=== PATIENT | male | born 1955 | race Caucasian/White ===

== ENCOUNTER → 2016-07-29 | Outpatient (CLI) | payer BC | LOC: MW.CHIM 08:04 | PROVIDERS: ATTEND Internal Medicine | DX: E11.9 Type 2 diabetes mellitus without complications (principal); Z79.4 Long term (current) use of insulin | CPT/HCPCS: 36415; 83036 ==

== ENCOUNTER 2016-09-12 19:57 | Emergency (ER) | payer BC ==
--- NOTE | 2016-09-12 20:02 | EDM.PDOC ---
ED HPI GENERAL MEDICAL PROBLEM - General Chief Complaint: Genitourinary Problem Stated Complaint: POSSIBLE UTI Time Seen by Provider: 09/12/16 20:00 Source of Information: Reports: Patient History Limitations: Reports: No Limitations - History of Present Illness INITIAL COMMENTS - FREE TEXT/NARRATIVE: HISTORY AND PHYSICAL: History of present illness: [Patient complaining frequent urination] Review of systems: As per history of present illness and below otherwise all systems reviewed and negative. Past medical history: As per history of present illness and as reviewed below otherwise noncontributory. Surgical history: As per history of present illness and as reviewed below otherwise noncontributory. Social history: No reported history of drug or alcohol abuse. Family history: As per history of present illness and as reviewed below otherwise noncontributory. Physical exam: HEENT: Normocephalic, atraumatic, pupils normal and symmetrical, supple neck, no meningismus, normal color Lungs: Normal and symmetrical chest wall excursion bilateral with no tachypnea or increased work of breathing, grossly normal chest exam Heart: No tachycardia in triage Abdomen: Normal-appearing, nondistended, no visible mass or asymmetry Pelvis: Normal-appearing Genitourinary: Deferred Rectal exam: Deferred Extremities: Atraumatic, normal use and range of motion, no visible evidence of gross neurovascular compromise Neuro: Awake, alert, oriented. Normal and appropriate mental status. Cranial nerves grossly unremarkable. Motor function normal. Nonfocal neurologic exam. Diagnostics: [Urinalysis pending] Therapeutics: [] Impression: [Dysuria] Plan: [] Definitive disposition and diagnosis as appropriate pending reevaluation and review of above. - Related Data Allergies Allergy/AdvReac Type Severity Reaction Status Date / Time No Known Allergies Allergy Verified 09/12/16 20:00 Home Meds: Home Meds Aspirin [[place] Aspirin] 1 tab PO DAILY 08/29/15 [History] Enalapril [Vasotec] 1 tab PO ASDIRECTED 08/29/15 [History] Insulin Glarg,Human.Rec.Analog [Lantus Solostar] 20 unit SUBCUT BEDTIME [History] Metoprolol Succinate 1 tab PO DAILY 08/29/15 [History] Mycophenolate Mofetil 1,000 mg PO BID 08/29/15 [History] NIFEdipine [Nifedipine ER] 1 tab PO DAILY 08/29/15 [History] Tacrolimus 1 tab PO ASDIRECTED 08/29/15 [History] predniSONE [Prednisone] 1 tab PO DAILY 08/29/15 [History] Sulfamethoxazole/Trimethoprim [Bactrim 400-80 MG] 1 tab PO DAILY 02/13/16 [ History] Ciprofloxacin [Ciprofloxacin HCl] 500 mg PO BID #20 tablet 09/12/16 [Rx] Past Medical History Other HEENT History: wears glasses, has upper denture Cardiovascular History: Reports: Hypertension, PVD Respiratory History: Reports: None Gastrointestinal History: Reports: None, Other (See Below) Other Gastrointestinal History: occasional heartburn Genitourinary History: Reports: Acute Renal Failure, Dialysis, Renal Calculus Other Genitourinary History: hx renal failure, dialysis in the past, hx of pancreas and kidney transplant Musculoskeletal History: Reports: None Neurological History: Reports: None Psychiatric History: Reports: None Endocrine/Metabolic History: Reports: Diabetes, Type I, Diabetes, Type II, Other (See Below) Hematologic History: Reports: None Immunologic History: Reports: Immunosuppression, Solid Organ Transplant Other Immunologic History: takes anti-rejection drugs Oncologic (Cancer) History: Reports: None Dermatologic History: Reports: None - Past Surgical History HEENT Surgical History: Reports: Cataract Surgery, Laser Surgery Male Surgical History: Reports: Kidney Stone Extraction Social & Family History - Tobacco Use Smoking Status *Q: Current Every Day Smoker Years of Tobacco use: 15 Packs/Tins Daily: 0.5 - Caffeine Use Caffeine Use: Reports: Coffee Caffeine Use Comment: 1 cup/ day - Recreational Drug Use Recreational Drug Use: No Drug Use in Last 12 Months: No ED ROS GENERAL - Review of Systems Review Of Systems: See Below (History of present illness) ED EXAM, RENAL/ - Physical Exam Exam: See Below (History of present illness) Course - Vital Signs Last Recorded V/S: Last Vital Signs Temp 36.5 C 09/12/16 20:01 Pulse 89 09/12/16 20:01 Resp 17 09/12/16 20:01 BP 146/81 H 09/12/16 20:01 Pulse Ox 97 09/12/16 20:01 - Orders/Labs/Meds Orders: Active Orders 24 hr Category Date Time Status CULTURE URINE [RM] Stat Lab 09/12/16 21:45 Ordered Labs: Laboratory Tests 09/12/16 09/12/16 Range/Units 20:01 20:25 Sodium 136 (136-146) mmol/L Potassium 4.9 (3.5-5.1) mmol/L Chloride 109 (98-110) mmol/L Carbon Dioxide 19 L (21-31) mmol/L BUN 19 (6.0-23.0) mg/dL Creatinine 1.1 (0.6-1.5) mg/dL Est Cr Clr Drug Dosing 29.41 mL/min Estimated GFR (MDRD) > 60.0 ml/min Glucose 167 H (60-110) mg/dL Calcium 9.2 (8.8-10.8) mg/dL Urine Color YELLOW Urine Appearance HAZY Urine pH 7.5 (5.0-8.0) Ur Specific [place] 1.010 (1.001-1.035) Urine Protein TRACE (NEGATIVE) mg/dL Urine Glucose (UA) 100 H (NEGATIVE) mg/dL Urine Ketones NEGATIVE (NEGATIVE) mg/dL Urine Occult Blood MODERATE (NEGATIVE) Urine Nitrite NEGATIVE (NEGATIVE) Urine Bilirubin NEGATIVE (NEGATIVE) Urine Urobilinogen 0.2 (<2.0) EU/dL Ur Leukocyte Esterase LARGE (NEGATIVE) Urine RBC 6-10 (0-2/HPF) Urine WBC 5-10 (0-5/HPF) Ur Epithelial Cells RARE (NONE-FEW) Ur Renal Epithelial Cell RARE Urine Bacteria FEW (NEGATIVE) Meds: Medications Discontinued Medications Generic Name Dose Route Start Last Admin Trade Name [place] PRN Reason Stop Dose Admin Ciprofloxacin 500 mg 09/12/16 21:45 Ciprofloxacin Hcl PO 09/12/16 21:46 ONETIME ONE Departure - Departure Time of Disposition: 21:47 Disposition: Home, Self-Care 01 Clinical Impression: Urinary tract infection - Discharge Information Prescriptions: Ciprofloxacin [Ciprofloxacin HCl] 500 mg PO BID #20 tablet Instructions: Urinary Tract Infection, Adult, [id number] Referrals: Tk Painting DO [Primary Care Provider] - Forms: ED Department Discharge Additional Instructions: Your symptoms and urinalysis suggest that you have an early urinary tract infection. Finish Keflex as prescribed and follow-up with your tomorrow. Your creatinine today was 1.1. - My Orders Last 24 Hours: My Active Orders 09/12/16 21:45 CULTURE URINE [RM] Stat - Assessment/Plan Last 24 Hours: My Active Orders 09/12/16 21:45 CULTURE URINE [RM] Stat
[2016-09-12 20:51] LABS: CHLORIDE,CL 109 mmol/L (98-110); SODIUM,NA 136 mmol/L (136-146)
[2016-09-12] MEDS ORDERED: Cephalexin 500 MG Cap PO ONE (21:38)
[2016-09-12] MEDS ORDERED: Ciprofloxacin 500 MG Tab PO ONE (21:45)
[2016-09-12 22:04] VITALS: BP 146/85
== END 2016-09-12 21:55 | disposition home or self-care (01) ==
LOC: MW.ED 19:57
DX: N39.0 Urinary tract infection, site not specified (principal); R30.0 Dysuria; I10 Essential (primary) hypertension; I73.9 Peripheral vascular disease, unspecified; F17.210 Nicotine dependence, cigarettes, uncomplicated; Z79.82 Long term (current) use of aspirin; Z79.899 Other long term (current) drug therapy; Z94.0 Kidney transplant status; Z94.83 Pancreas transplant status; Z98.49 Cataract extraction status, unspecified eye; Z87.442 Personal history of urinary calculi
CPT/HCPCS: 36415; 80048; 81001; 87086; 99283; A9270

== ENCOUNTER 2019-05-29 13:40 | Observation (INO) | payer BC ==
[2019-05-29 15:30] LABS: CARBON DIOXIDE,CO2 11.6 mmol/L (21.0-32.0)
[2019-05-29 15:39] LABS: POTASSIUM,K 5.9 mmol/L (3.5-5.1)
[2019-05-29] MEDS ORDERED: Sodium Chloride 0.9% 1,000 ML IV ONE (16:33)
[2019-05-29] MEDS ORDERED: Calcium Gluconate 10% 1 GM/10 ML SDV IV ONE (16:44)
[2019-05-29] MEDS ORDERED: Polyethylene Glycol 3350 Powder 17 GM Packet PO PRN (17:22)
[2019-05-29] MEDS ORDERED: Ondansetron 4 MG Tab.DIS PO PRN (17:22)
[2019-05-29] MEDS ORDERED: Acetaminophen 325 MG Tab PO PRN (17:22)
[2019-05-29] MEDS ORDERED: Temazepam 15 MG Cap PO PRN (17:22)
[2019-05-29] MEDS ORDERED: Docusate Sodium 100 MG Cap PO PRN (17:22)
[2019-05-29] MEDS ORDERED: Ondansetron 4 MG/2 ML SDV IVPUSH PRN (17:22)
[2019-05-29] MEDS ORDERED: Sodium Chloride 0.9% 1,000 ML IV SCH (17:30)
--- NOTE | 2019-05-29 17:51 | EDM.PDOC ---
ED HPI GENERAL MEDICAL PROBLEM - General Chief Complaint: General Stated Complaint: NEEDS ANTIBIOTICS Time Seen by Provider: 05/29/19 15:55 - History of Present Illness INITIAL COMMENTS - FREE TEXT/NARRATIVE: 63-year-old gentleman history of kidney transplant pancreatic transplant presenting to ER from clinic for abnormal labs. Patient is in essence asymptomatic. Palpitations denied chest pain denied shortness of breath denied dizziness denied numbness. - Related Data Allergies Allergy/AdvReac Type Severity Reaction Status Date / Time No Known Allergies Allergy Verified 05/29/19 13:52 Home Meds: Home Meds Aspirin [[place] Aspirin EC] 1 tab PO DAILY 08/29/15 [History] Enalapril [Vasotec] 1 tab PO DAILY 08/29/15 [History] Metoprolol Succinate 1 tab PO DAILY 08/29/15 [History] NIFEdipine [Nifedipine ER] 1 tab PO DAILY 08/29/15 [History] Tacrolimus 2 mg PO DAILY 08/29/15 [History] mycophenolate mofetiL [Mycophenolate Mofetil] 1,000 mg PO BID 08/29/15 [History] predniSONE [Prednisone] 1 tab PO DAILY 08/29/15 [History] Sulfamethoxazole/Trimethoprim [Bactrim 400-80 MG] 1 tab PO DAILY 02/13/16 [ History] Insulin Pump/Infus. Set/Meter [Accu-Chek Combo System] 1 dose SQ DAILY 03/03/18 [History] Sodium Bicarbonate 2 - 3 tab PO 5XDAY 03/03/18 [History] Tacrolimus 1 mg PO BEDTIME 05/29/19 [History] Past Medical History HEENT History: Reports: Other (See Below) Other HEENT History: wears glasses, has upper denture Cardiovascular History: Reports: PVD Respiratory History: Reports: None Gastrointestinal History: Reports: None, Other (See Below) Other Gastrointestinal History: occasional heartburn Genitourinary History: Reports: Acute Renal Failure, Dialysis, Renal Calculus Other Genitourinary History: hx renal failure, dialysis in the past, hx of pancreas and kidney transplant Musculoskeletal History: Reports: None Neurological History: Reports: None Psychiatric History: Reports: None Endocrine/Metabolic History: Reports: Diabetes, Type I, Other (See Below) Who Manages Your Pump: Patient (Self) Hematologic History: Reports: None Immunologic History: Reports: Immunosuppression, Solid Organ Transplant Other Immunologic History: takes anti-rejection drugs Oncologic (Cancer) History: Reports: None Dermatologic History: Reports: None - Infectious Disease History Infectious Disease History: Reports: Chicken Pox - Past Surgical History Head Surgeries/Procedures: Reports: None HEENT Surgical History: Reports: Cataract Surgery, Laser Surgery Male Surgical History: Reports: Kidney Stone Extraction Social & Family History - Tobacco Use Smoking Status *Q: Never Smoker - Caffeine Use Caffeine Use: Reports: Tea Caffeine Use Comment: 1 cup/ day - Recreational Drug Use Recreational Drug Use: No ED ROS GENERAL - Review of Systems Review Of Systems: Comprehensive ROS is negative, except as noted in HPI. ED EXAM, GENERAL - Physical Exam Exam: See Below Exam Limited By: No Limitations General Appearance: Alert, No Apparent Distress Ears: Normal External Exam Nose: Normal Inspection Neck: Normal Inspection Respiratory/Chest: No Respiratory Distress Cardiovascular: Normal Peripheral Pulses GI/Abdominal: Soft, Non-Tender (Male) Exam: Deferred Rectal (Males) Exam: Deferred Extremities: Normal Inspection Neurological: Alert, Normal Gait EKG INTERPRETATION EKG Date: 05/29/19 Rhythm: NSR [place]: Normal P-Wave: Present QRS: Normal ST-T: Normal QT: Normal Course - Vital Signs Last Recorded V/S: Last Vital Signs Temp 96.9 F 05/29/19 18:03 Pulse 82 05/29/19 18:03 Resp 15 05/29/19 18:03 BP 115/69 05/29/19 18:03 Pulse Ox 98 05/29/19 18:03 - Orders/Labs/Meds Orders: Active Orders 24 hr Category Date Time Status EKG Documentation Completion [RC] STAT Care 05/29/19 14:37 Active CULTURE URINE [RM] Stat Lab 05/29/19 14:05 Received Medication Orders Acetaminophen (Tylenol) 650 mg PO Q4H PRN PRN Reason: Pain (Mild 1-3)/fever Albuterol (Proventil Neb Soln) 2.5 mg NEB Q2H OLIVIA Stop: 05/29/19 21:31 Docusate Sodium (Colace) 100 mg PO BID PRN PRN Reason: Constipation Heparin Sodium (Porcine) (Heparin Sodium) 5,000 units SUBCUT Q8H OLIVIA Sodium Chloride (Normal Saline) 1,000 mls @ 125 mls/hr IV ASDIRECTED OLIVIA Ceftriaxone Sodium/Dextrose 1 (gm/ Premix) 50 mls @ 100 mls/hr IV DAILY OLIVIA Metoprolol Succinate (Toprol Xl) 50 mg PO DAILY [facility] Mycophenolate Mofetil (Cellcept) 1,000 mg PO BID OLIVIA Nifedipine (Procardia Xl) 30 mg PO DAILY [facility] Non-Formulary Medication (Insulin Pump/Infus. Set/Meter [Accu-Chek Combo System] ) 1 dose SQ DAILY OLIVIA Non-Formulary Medication (Sodium Bicarbonate) 2 tab PO 5XDAY OLIVIA Ondansetron HCl (Zofran Odt) 4 mg PO Q4H PRN PRN Reason: nausea, able to take PO Ondansetron HCl (Zofran) 4 mg IVPUSH Q4H PRN PRN Reason: Nausea Polyethylene Glycol (Miralax) 17 gm PO DAILY PRN PRN Reason: Constipation Prednisone (Prednisone) 5 mg PO DAILY [facility] Tacrolimus (Prograf) 1 mg PO BEDTIME OLIVIA Tacrolimus (Prograf) 2 mg PO DAILY OLIVIA Temazepam (Restoril) 15 mg PO BEDTIME PRN PRN Reason: Sleep Labs: Laboratory Tests 05/29/19 05/29/19 05/29/19 Range/Units 14:00 14:05 15:03 WBC 13.75 H (4.0-11.0) K/uL RBC 4.65 (4.50-5.90) M/uL Hgb 14.2 (13.0-17.0) g/dL Hct 43.4 (38.0-50.0) % MCV 93.3 (80.0-98.0) fL MCH 30.5 (27.0-32.0) pg MCHC 32.7 (31.0-37.0) g/dL RDW Std Deviation 48.9 (28.0-62.0) fl RDW Coeff of Kurt 15 (11.0-15.0) % Plt Count 426 H (150-400) K/uL MPV 9.50 (7.40-12.00) fL Neut % (Auto) 83.5 H (48.0-80.0) % Lymph % (Auto) 10.8 L (16.0-40.0) % [place] % (Auto) 5.5 (0.0-15.0) % Eos % (Auto) 0.1 (0.0-7.0) % Baso % (Auto) 0.1 (0.0-1.5) % Neut # (Auto) 11.5 H (1.4-5.7) K/uL Lymph # (Auto) 1.5 (0.6-2.4) K/uL [place] # (Auto) 0.8 (0.0-0.8) K/uL Eos # (Auto) 0.0 (0.0-0.7) K/uL Baso # (Auto) 0.0 (0.0-0.1) K/uL Nucleated RBC % 0.0 /100WBC Nucleated RBCs # 0 K/uL Sodium 123 L (136-148) mmol/L Potassium 5.9 H (3.5-5.1) mmol/L Chloride 96 L (98-107) mmol/L Carbon Dioxide 11.6 L (21.0-32.0) mmol/L BUN 53 H (7.0-18.0) mg/dL Creatinine 1.8 H (0.8-1.3) mg/dL Est Cr Clr Drug Dosing 33.81 mL/min Estimated GFR (MDRD) 38.3 ml/min Glucose 242 H (74-106) mg/dL Hemoglobin A1c (4.5-6.2) % Calcium 9.0 (8.5-10.1) mg/dL Magnesium (1.8-2.4) mg/dL Total Bilirubin 0.3 (0.2-1.0) mg/dL AST 19 (15-37) IU/L ALT 20 (14-63) IU/L Alkaline Phosphatase 73 (46-116) U/L Total Protein 7.5 (6.4-8.2) g/dL Albumin 3.7 (3.4-5.0) g/dL Globulin 3.8 (2.6-4.0) g/dL Albumin/Globulin Ratio 1.0 (0.9-1.6) Lipase 728 H (73-393) U/L Urine Color YELLOW Urine Appearance SLT CLOUDY Urine pH 7.5 (5.0-8.0) Ur Specific [place] 1.015 (1.001-1.035) Urine Protein NEGATIVE (NEGATIVE) mg/dL Urine Glucose (UA) NEGATIVE (NEGATIVE) mg/dL Urine Ketones NEGATIVE (NEGATIVE) mg/dL Urine Occult Blood LARGE H (NEGATIVE) Urine Nitrite NEGATIVE (NEGATIVE) Urine Bilirubin NEGATIVE (NEGATIVE) Urine Urobilinogen 0.2 (<2.0) EU/dL Ur Leukocyte Esterase LARGE H (NEGATIVE) Urine RBC 30-35 (0-2/HPF) Urine WBC 6-8 (0-5/HPF) Ur Epithelial Cells FEW (NONE-FEW) Urine Bacteria FEW (NEGATIVE) Urine Mucus MODERATE (NONE-MOD) 05/29/19 05/29/19 Range/Units 15:03 15:03 WBC (4.0-11.0) K/uL RBC (4.50-5.90) M/uL Hgb (13.0-17.0) g/dL Hct (38.0-50.0) % MCV (80.0-98.0) fL MCH (27.0-32.0) pg MCHC (31.0-37.0) g/dL RDW Std Deviation (28.0-62.0) fl RDW Coeff of Kurt (11.0-15.0) % Plt Count (150-400) K/uL MPV (7.40-12.00) fL Neut % (Auto) (48.0-80.0) % Lymph % (Auto) (16.0-40.0) % [place] % (Auto) (0.0-15.0) % Eos % (Auto) (0.0-7.0) % Baso % (Auto) (0.0-1.5) % Neut # (Auto) (1.4-5.7) K/uL Lymph # (Auto) (0.6-2.4) K/uL [place] # (Auto) (0.0-0.8) K/uL Eos # (Auto) (0.0-0.7) K/uL Baso # (Auto) (0.0-0.1) K/uL Nucleated RBC % /100WBC Nucleated RBCs # K/uL Sodium (136-148) mmol/L Potassium (3.5-5.1) mmol/L Chloride (98-107) mmol/L Carbon Dioxide (21.0-32.0) mmol/L BUN (7.0-18.0) mg/dL Creatinine (0.8-1.3) mg/dL Est Cr Clr Drug Dosing mL/min Estimated GFR (MDRD) ml/min Glucose (74-106) mg/dL Hemoglobin A1c 6.4 H (4.5-6.2) % Calcium (8.5-10.1) mg/dL Magnesium 2.3 (1.8-2.4) mg/dL Total Bilirubin (0.2-1.0) mg/dL AST (15-37) IU/L ALT (14-63) IU/L Alkaline Phosphatase (46-116) U/L Total Protein (6.4-8.2) g/dL Albumin (3.4-5.0) g/dL Globulin (2.6-4.0) g/dL Albumin/Globulin Ratio (0.9-1.6) Lipase (73-393) U/L Urine Color Urine Appearance Urine pH (5.0-8.0) Ur Specific [place] (1.001-1.035) Urine Protein (NEGATIVE) mg/dL Urine Glucose (UA) (NEGATIVE) mg/dL Urine Ketones (NEGATIVE) mg/dL Urine Occult Blood (NEGATIVE) Urine Nitrite (NEGATIVE) Urine Bilirubin (NEGATIVE) Urine Urobilinogen (<2.0) EU/dL Ur Leukocyte Esterase (NEGATIVE) Urine RBC (0-2/HPF) Urine WBC (0-5/HPF) Ur Epithelial Cells (NONE-FEW) Urine Bacteria (NEGATIVE) Urine Mucus (NONE-MOD) Meds: Medications Generic Name Dose Route Start Last Admin Trade Name Freq PRN Reason Stop Dose Admin Acetaminophen 650 mg 05/29/19 17:22 Tylenol PO Q4H PRN Pain (Mild 1-3)/fever Albuterol 2.5 mg 05/29/19 17:30 Proventil Neb Soln NEB 05/29/19 21:31 Q2H OLIVIA Docusate Sodium 100 mg 05/29/19 17:22 Colace PO BID PRN Constipation Heparin Sodium (Porcine) 5,000 units 05/29/19 17:30 Heparin Sodium SUBCUT Q8H [facility] Sodium Chloride 1,000 mls @ 125 mls/hr 05/29/19 17:30 Normal Saline IV ASDIRECTED [facility] Ceftriaxone Sodium/Dextrose 1 50 mls @ 100 mls/hr 05/29/19 18:00 gm/ Premix IV DAILY OLIVIA Metoprolol Succinate 50 mg 05/30/19 09:00 Toprol Xl PO DAILY OLIVIA Mycophenolate Mofetil 1,000 mg 05/29/19 21:00 Cellcept PO BID [facility] Nifedipine 30 mg 05/30/19 09:00 Procardia Xl PO DAILY [facility] Non-Formulary Medication 1 dose 05/30/19 09:00 Insulin Pump/Infus. Set/Meter [Accu-Chek Combo System] SQ DAILY OLIVIA Non-Formulary Medication 2 tab 05/29/19 19:00 Sodium Bicarbonate PO 5XDAY OLIVIA Ondansetron HCl 4 mg 05/29/19 17:22 Zofran Odt PO Q4H PRN nausea, able to take PO Ondansetron HCl 4 mg 05/29/19 17:22 Zofran IVPUSH Q4H PRN Nausea Polyethylene Glycol 17 gm 05/29/19 17:22 Miralax PO DAILY PRN Constipation Prednisone 5 mg 05/30/19 09:00 Prednisone PO DAILY OLIVIA Tacrolimus 1 mg 05/29/19 21:00 Prograf PO BEDTIME OLIVIA Tacrolimus 2 mg 05/30/19 09:00 Prograf PO DAILY [facility] Temazepam 15 mg 05/29/19 17:22 Restoril PO BEDTIME PRN Sleep Discontinued Medications Generic Name Dose Route Start Last Admin Trade Name Freq PRN Reason Stop Dose Admin Calcium Gluconate 1 gm 05/29/19 16:44 05/29/19 16:50 Calcium Gluconate IV 05/29/19 16:45 1 gm ONETIME ONE Administration Sodium Chloride 1,000 mls @ 999 mls/hr 05/29/19 16:33 05/29/19 16:48 Normal Saline IV 05/29/19 17:33 999 mls/hr .BOLUS ONE Administration Sodium Polystyrene Sulfonate 15 gm 05/29/19 19:51 Kayexalate PO 05/29/19 19:52 ONETIME ONE - Re-Assessments/Exams Free Text/Narrative Re-Assessment/Exam: 05/29/19 17:49 Patient is asymptomatic was sent in by PMD because of increase in his creatinine. Found to be hyperkalemic, no EKG changes. Hyperkalemia was also being managed as an outpatient where the highest value was 6.4. We gave him IV fluids, should increase creatinine clearance and also help bring the potassium down. Also ca gluconate given even though there were no EKG changes (internal medicine reccomended). Abdominal exam was benign patient does not have any abdominal pain, lipase found to be elevated, will keep IVF hydration. Departure - Departure Time of Disposition: 17:00 Disposition: Admitted As Inpatient 66 Clinical Impression: Hyperkalemia - Discharge Information Sepsis Event Note - Evaluation Sepsis Screening Result: No Definite Risk - Focused Exam Vital Signs: Vital Signs Temp Pulse Resp BP Pulse Ox 05/29/19 13:53 96.1 F L 87 16 111/63 98 Date Exam was Performed: 05/29/19 Time Exam was Performed: 20:03
[2019-05-29 17:54] LABS: HEMOGLOBIN A1C 6.4 % (4.5-6.2)
--- NOTE | 2019-05-29 18:08 | PCM.HP.2 ---
H&P History of Present Illness - General Date of Service: 05/29/19 Admit Problem/Dx: Admission Diagnosis/Problem Admission Diagnosis/Problem Hyponatremia - History of Present Illness Initial Comments - Free Text/Narative: 63 y/o male with history of renal transplant, diabetes type 2 who presented to the ER complaining of generalized weakness. Patient states he has been feeling weak for the past couple of weeks. He had been taking Bactrim for UTI diagnosed about 1 week ago. In addition, he had been seeing his PCP for hyperkalemia. Patient states that initially his K was above 6.0 and was prescribed lasix which he took, however, today he was advised to come to the ER since his potassium was still elevated at 5.9 and sodium 123. In addition, Cr 1.8 and UA positive for UTI. - Related Data Allergies/Adverse Reactions: Allergies Allergy/AdvReac Type Severity Reaction Status Date / Time No Known Allergies Allergy Verified 05/29/19 13:52 Home Medications: Home Meds Aspirin [[place] Aspirin EC] 1 tab PO DAILY 08/29/15 [History] Enalapril [Vasotec] 1 tab PO DAILY 08/29/15 [History] Metoprolol Succinate 1 tab PO DAILY 08/29/15 [History] NIFEdipine [Nifedipine ER] 1 tab PO DAILY 08/29/15 [History] Tacrolimus 2 mg PO DAILY 08/29/15 [History] mycophenolate mofetiL [Mycophenolate Mofetil] 1,000 mg PO BID 08/29/15 [History] predniSONE [Prednisone] 1 tab PO DAILY 08/29/15 [History] Sulfamethoxazole/Trimethoprim [Bactrim 400-80 MG] 1 tab PO DAILY 02/13/16 [ History] Insulin Pump/Infus. Set/Meter [Accu-Chek Combo System] 1 dose SQ DAILY 03/03/18 [History] Sodium Bicarbonate 2 - 3 tab PO 5XDAY 03/03/18 [History] Tacrolimus 1 mg PO BEDTIME 05/29/19 [History] Past Medical History HEENT History: Reports: Other (See Below) Other HEENT History: wears glasses, has upper denture Cardiovascular History: Reports: PVD Respiratory History: Reports: None Gastrointestinal History: Reports: None, Other (See Below) Other Gastrointestinal History: occasional heartburn Genitourinary History: Reports: Acute Renal Failure, Dialysis, Renal Calculus Other Genitourinary History: hx renal failure, dialysis in the past, hx of pancreas and kidney transplant Musculoskeletal History: Reports: None Neurological History: Reports: None Psychiatric History: Reports: None Endocrine/Metabolic History: Reports: Diabetes, Type I, Other (See Below) Who Manages Your Pump: Patient (Self) Hematologic History: Reports: None Immunologic History: Reports: Immunosuppression, Solid Organ Transplant Other Immunologic History: takes anti-rejection drugs Oncologic (Cancer) History: Reports: None Dermatologic History: Reports: None - Infectious Disease History Infectious Disease History: Reports: Chicken Pox - Past Surgical History Head Surgeries/Procedures: Reports: None HEENT Surgical History: Reports: Cataract Surgery, Laser Surgery Male Surgical History: Reports: Kidney Stone Extraction Social & Family History - Tobacco Use Smoking Status *Q: Never Smoker - Caffeine Use Caffeine Use: Reports: Tea Caffeine Use Comment: 1 cup/ day - Recreational Drug Use Recreational Drug Use: No H&P Review of Systems - Review of Systems: Review Of Systems: Comprehensive ROS is negative, except as noted in HPI. Exam - Exam Exam: See Below - Vital Signs Vital Signs: Last Vital Signs Temp 35.6 C L 05/29/19 13:53 Pulse 74 05/29/19 16:55 Resp 15 05/29/19 16:55 BP 106/66 05/29/19 16:55 Pulse Ox 98 05/29/19 16:55 Weight: 76.204 kg - Exam General: Alert, Oriented, Cooperative HEENT: Other (dry oral mucosa) Lungs: Clear to Auscultation, Normal Respiratory Effort. No: Crackles, Wheezing Cardiovascular: Regular Rate, Regular Rhythm GI/Abdominal Exam: Normal Bowel Sounds, Soft, Non-Tender, No Distention Extremities: Normal Inspection, No Pedal Edema Skin: Warm, Dry Neuro Extensive - Mental Status: Alert, Oriented x3 - Patient Data Lab Results Last 24 hrs: Laboratory Results - last 24 hr 05/29/19 05/29/19 05/29/19 Range/Units 14:00 14:05 15:03 WBC 13.75 H (4.0-11.0) K/uL RBC 4.65 (4.50-5.90) M/uL Hgb 14.2 (13.0-17.0) g/dL Hct 43.4 (38.0-50.0) % MCV 93.3 (80.0-98.0) fL MCH 30.5 (27.0-32.0) pg MCHC 32.7 (31.0-37.0) g/dL RDW Std Deviation 48.9 (28.0-62.0) fl RDW Coeff of Kurt 15 (11.0-15.0) % Plt Count 426 H (150-400) K/uL MPV 9.50 (7.40-12.00) fL Neut % (Auto) 83.5 H (48.0-80.0) % Lymph % (Auto) 10.8 L (16.0-40.0) % [place] % (Auto) 5.5 (0.0-15.0) % Eos % (Auto) 0.1 (0.0-7.0) % Baso % (Auto) 0.1 (0.0-1.5) % Neut # (Auto) 11.5 H (1.4-5.7) K/uL Lymph # (Auto) 1.5 (0.6-2.4) K/uL [place] # (Auto) 0.8 (0.0-0.8) K/uL Eos # (Auto) 0.0 (0.0-0.7) K/uL Baso # (Auto) 0.0 (0.0-0.1) K/uL Nucleated RBC % 0.0 /100WBC Nucleated RBCs # 0 K/uL Sodium 123 L (136-148) mmol/L Potassium 5.9 H (3.5-5.1) mmol/L Chloride 96 L (98-107) mmol/L Carbon Dioxide 11.6 L (21.0-32.0) mmol/L BUN 53 H (7.0-18.0) mg/dL Creatinine 1.8 H (0.8-1.3) mg/dL Est Cr Clr Drug Dosing 33.81 mL/min Estimated GFR (MDRD) 38.3 ml/min Glucose 242 H (74-106) mg/dL Hemoglobin A1c (4.5-6.2) % Calcium 9.0 (8.5-10.1) mg/dL Magnesium (1.8-2.4) mg/dL Total Bilirubin 0.3 (0.2-1.0) mg/dL AST 19 (15-37) IU/L ALT 20 (14-63) IU/L Alkaline Phosphatase 73 (46-116) U/L Total Protein 7.5 (6.4-8.2) g/dL Albumin 3.7 (3.4-5.0) g/dL Globulin 3.8 (2.6-4.0) g/dL Albumin/Globulin Ratio 1.0 (0.9-1.6) Lipase 728 H (73-393) U/L Urine Color YELLOW Urine Appearance SLT CLOUDY Urine pH 7.5 (5.0-8.0) Ur Specific [place] 1.015 (1.001-1.035) Urine Protein NEGATIVE (NEGATIVE) mg/dL Urine Glucose (UA) NEGATIVE (NEGATIVE) mg/dL Urine Ketones NEGATIVE (NEGATIVE) mg/dL Urine Occult Blood LARGE H (NEGATIVE) Urine Nitrite NEGATIVE (NEGATIVE) Urine Bilirubin NEGATIVE (NEGATIVE) Urine Urobilinogen 0.2 (<2.0) EU/dL Ur Leukocyte Esterase LARGE H (NEGATIVE) Urine RBC 30-35 (0-2/HPF) Urine WBC 6-8 (0-5/HPF) Ur Epithelial Cells FEW (NONE-FEW) Urine Bacteria FEW (NEGATIVE) Urine Mucus MODERATE (NONE-MOD) 05/29/19 05/29/19 Range/Units 15:03 15:03 WBC (4.0-11.0) K/uL RBC (4.50-5.90) M/uL Hgb (13.0-17.0) g/dL Hct (38.0-50.0) % MCV (80.0-98.0) fL MCH (27.0-32.0) pg MCHC (31.0-37.0) g/dL RDW Std Deviation (28.0-62.0) fl RDW Coeff of Kurt (11.0-15.0) % Plt Count (150-400) K/uL MPV (7.40-12.00) fL Neut % (Auto) (48.0-80.0) % Lymph % (Auto) (16.0-40.0) % [place] % (Auto) (0.0-15.0) % Eos % (Auto) (0.0-7.0) % Baso % (Auto) (0.0-1.5) % Neut # (Auto) (1.4-5.7) K/uL Lymph # (Auto) (0.6-2.4) K/uL [place] # (Auto) (0.0-0.8) K/uL Eos # (Auto) (0.0-0.7) K/uL Baso # (Auto) (0.0-0.1) K/uL Nucleated RBC % /100WBC Nucleated RBCs # K/uL Sodium (136-148) mmol/L Potassium (3.5-5.1) mmol/L Chloride (98-107) mmol/L Carbon Dioxide (21.0-32.0) mmol/L BUN (7.0-18.0) mg/dL Creatinine (0.8-1.3) mg/dL Est Cr Clr Drug Dosing mL/min Estimated GFR (MDRD) ml/min Glucose (74-106) mg/dL Hemoglobin A1c 6.4 H (4.5-6.2) % Calcium (8.5-10.1) mg/dL Magnesium 2.3 (1.8-2.4) mg/dL Total Bilirubin (0.2-1.0) mg/dL AST (15-37) IU/L ALT (14-63) IU/L Alkaline Phosphatase (46-116) U/L Total Protein (6.4-8.2) g/dL Albumin (3.4-5.0) g/dL Globulin (2.6-4.0) g/dL Albumin/Globulin Ratio (0.9-1.6) Lipase (73-393) U/L Urine Color Urine Appearance Urine pH (5.0-8.0) Ur Specific [place] (1.001-1.035) Urine Protein (NEGATIVE) mg/dL Urine Glucose (UA) (NEGATIVE) mg/dL Urine Ketones (NEGATIVE) mg/dL Urine Occult Blood (NEGATIVE) Urine Nitrite (NEGATIVE) Urine Bilirubin (NEGATIVE) Urine Urobilinogen (<2.0) EU/dL Ur Leukocyte Esterase (NEGATIVE) Urine RBC (0-2/HPF) Urine WBC (0-5/HPF) Ur Epithelial Cells (NONE-FEW) Urine Bacteria (NEGATIVE) Urine Mucus (NONE-MOD) Result Diagrams: 05/29/19 14:00 05/29/19 15:03 Sepsis Event Note - Evaluation Sepsis Screening Result: No Definite Risk - Focused Exam Vital Signs: Vital Signs Temp Pulse Resp BP Pulse Ox 05/29/19 16:55 74 15 106/66 98 05/29/19 13:53 35.6 C L 87 16 111/63 98 Date Exam was Performed: 05/29/19 Time Exam was Performed: 20:25 Problem List Initiated/Reviewed/Updated: Yes Orders Last 24hrs: Active Orders 24 hr Category Date Time Status Admission Status [Patient Status] [ADT] Stat ADT 05/29/19 16:43 Active Admission Status [Patient Status] [ADT] Stat ADT 05/29/19 17:51 Active Blood Glucose Check, Bedside [RC] QIDACANDBED Care 05/29/19 17:22 Active Cardiac Monitoring [RC] . DIRECTED Care 05/29/19 16:45 Active EKG Documentation Completion [RC] STAT Care 05/29/19 14:37 Active Intake and Output [RC] QSHIFT Care 05/29/19 17:22 Active Oxygen Therapy [RC] PRN Care 05/29/19 17:22 Active RT Aerosol Therapy [RC] ASDIRECTED Care 05/29/19 17:24 Active Up ad Mitzy [RC] ASDIRECTED Care 05/29/19 17:22 Active VTE/DVT Education [RC] PER UNIT ROUTINE Care 05/29/19 17:22 Active Vital Signs [RC] Q4H Care 05/29/19 17:22 Active [place] [employer] Diet [DIET] Diet 05/29/19 Dinner Active BASIC METABOLIC PANEL,BMP [CHEM] Q4H Lab 05/29/19 19:00 Ordered BASIC METABOLIC PANEL,BMP [CHEM] Q4H Lab 05/29/19 23:00 Ordered CULTURE BLOOD [BC] Stat Lab 05/29/19 17:22 Ordered CULTURE BLOOD [BC] Stat Lab 05/29/19 17:22 Ordered CULTURE URINE [RM] Stat Lab 05/29/19 14:05 Received LIPID PANEL [CHEM] AM Lab 05/30/19 05:11 Ordered TSH [CHEM] AM Lab 05/30/19 05:11 Ordered Acetaminophen [Tylenol] Med 05/29/19 17:22 Active 650 mg PO Q4H PRN Albuterol [Proventil Neb Soln] Med 05/29/19 17:30 Active 2.5 mg NEB Q2H Docusate Sodium [Colace] Med 05/29/19 17:22 Active 100 mg PO BID PRN Heparin Sodium Med 05/29/19 17:30 Active 5,000 units SUBCUT Q8H Insulin Pump/Infus. Set/Meter [Accu-Chek Combo System] Med 05/30/19 09:00 Active 1 dose SQ DAILY Metoprolol Succinate [Toprol XL] Med 05/30/19 09:00 Active 50 mg PO DAILY NIFEdipine [Procardia XL] Med 05/30/19 09:00 Active 30 mg PO DAILY Ondansetron [Zofran ODT] Med 05/29/19 17:22 Active 4 mg PO Q4H PRN Ondansetron [Zofran] Med 05/29/19 17:22 Active 4 mg IVPUSH Q4H PRN Sodium Bicarbonate Med 05/29/19 19:00 Active 2 tab PO 5XDAY Sodium Chloride 0.9% [Normal Saline] 1,000 ml Med 05/29/19 17:30 Active IV ASDIRECTED Tacrolimus [Prograf] Med 05/29/19 21:00 Active 1 mg PO BEDTIME Tacrolimus [Prograf] Med 05/30/19 09:00 Active 2 mg PO DAILY Temazepam [Restoril] Med 05/29/19 17:22 Active 15 mg PO BEDTIME PRN cefTRIAXone [Rocephin in Dextrose,Iso-Osm 1 GM/50 ML] 1 Med 05/29/19 18:00 Active gm Premix Bag 1 bag IV DAILY mycophenolate mofetiL [Cellcept] Med 05/29/19 21:00 Active 1,000 mg PO BID polyethylene glycoL 3350 [MiraLAX] Med 05/29/19 17:22 Active 17 gm PO DAILY PRN predniSONE Med 05/30/19 09:00 Active 5 mg PO DAILY Blood Culture x2 Reflex Set [OM.PC] Stat Oth 05/29/19 17:22 Ordered Resuscitation Status Routine Resus Stat 05/29/19 17:22 Ordered Medication Orders Acetaminophen (Tylenol) 650 mg PO Q4H PRN PRN Reason: Pain (Mild 1-3)/fever Albuterol (Proventil Neb Soln) 2.5 mg NEB Q2H OLIVIA Stop: 05/29/19 21:31 Docusate Sodium (Colace) 100 mg PO BID PRN PRN Reason: Constipation Heparin Sodium (Porcine) (Heparin Sodium) 5,000 units SUBCUT Q8H [facility] Sodium Chloride (Normal Saline) 1,000 mls @ 125 mls/hr IV ASDIRECTED [facility] Ceftriaxone Sodium/Dextrose 1 (gm/ Premix) 50 mls @ 100 mls/hr IV DAILY [facility] Metoprolol Succinate (Toprol Xl) 50 mg PO DAILY [facility] Mycophenolate Mofetil (Cellcept) 1,000 mg PO BID [facility] Nifedipine (Procardia Xl) 30 mg PO DAILY [facility] Non-Formulary Medication (Insulin Pump/Infus. Set/Meter [Accu-Chek Combo System] ) 1 dose SQ DAILY [facility] Non-Formulary Medication (Sodium Bicarbonate) 2 tab PO 5XDAY [facility] Ondansetron HCl (Zofran Odt) 4 mg PO Q4H PRN PRN Reason: nausea, able to take PO Ondansetron HCl (Zofran) 4 mg IVPUSH Q4H PRN PRN Reason: Nausea Polyethylene Glycol (Miralax) 17 gm PO DAILY PRN PRN Reason: Constipation Prednisone (Prednisone) 5 mg PO DAILY [facility] Tacrolimus (Prograf) 1 mg PO BEDTIME OLIVIA Tacrolimus (Prograf) 2 mg PO DAILY [facility] Temazepam (Restoril) 15 mg PO BEDTIME PRN PRN Reason: Sleep Assessment/Plan Comment:: A: 1. Hyponatremia 2. Hyperkalemia 3. Acute kidney injury 4. Leukocytosis 5. UTI 6. PMH renal transplant, DM2 P: 1. Will start maintenance fluids 125 ml/hr NS. Repeat BMP to assess Na levels. In addition, will give Kayexalate once for hyperkalemia. Will get CT abdomen/ pelvis to assess for any hydronephrosis due to history of renal transplant and UTI. Ceftriaxone for UTI. Pending urine culture result. Not sure what caused hyponatremia. Possibly due to recent use of Bactrim. Will continue to monitor kidney function. Will resume immunosuppressive medication. Will continue with patient's insulin pump.
[2019-05-29] MEDS ORDERED: Sodium Polystyrene Sulfonate 15 GM/60 ML Susp 60 ML Bot PO ONE (19:51)
[2019-05-29] MEDS: Heparin Sodium 5,000 Units/ML Vial SUBCUT SCH (20:15)
[2019-05-29] MEDS: cefTRIAXone 1 GM in Premix Bag 1 BAG IV SCH (20:24)
[2019-05-29] MEDS ORDERED: Albuterol 0.083% 2.5 MG/3 ML Neb Soln NEB PRN (20:24)
[2019-05-29] MEDS: Mycophenolate Mofetil 250 MG Cap PO SCH (20:27)
[2019-05-29 20:33] LABS: CARBON DIOXIDE,CO2 14.4 mmol/L (21.0-32.0); POTASSIUM,K 6.1 mmol/L (3.5-5.1)
[2019-05-29] MEDS ORDERED: Tacrolimus 1 MG Cap PO SCH (21:00)
[2019-05-29] MEDS ORDERED: Insulin Regular, Human 100 Units/ML 10 ML Vial IVPUSH ONE (21:08)
[2019-05-29] MEDS: Albuterol 0.083% 2.5 MG/3 ML Neb Soln NEB SCH (21:09)
[2019-05-29] MEDS ORDERED: 50% Dextrose in Water 50 ML Syringe IVPUSH ONE (21:09)
--- NOTE | 2019-05-29 21:34 | CT ---
CT abdomen and pelvis Technique: Multiple axial sections were obtained from above the dome of the diaphragm inferiorly through the pubic symphysis. Intravenous and oral contrast was not utilized. Comparison: Prior CT abdomen and pelvis exam of 08/07/15. Findings: Visualized lung bases show slight parenchymal scarring with nothing acute being appreciated. Noncontrast appearance of the liver shows no focal parenchymal abnormality. Spleen appears normal. Both [place] kidneys are atrophic. Adrenal glands show no nodule. Gallbladder shows very minimal increased density possibly due to minimal gallstones. [place] pancreas is atrophic. Aorta shows diffuse atherosclerotic calcification without aneurysm. No retroperitoneal adenopathy is seen. Abnormal bladder is seen which appears stable in appearance from prior exam and configuration. There is mild wall calcification being seen or possibly an anastomotic sutures within a portion of the bladder. Previous study showed bladder calculi which are not identified. Transplant kidney is seen within the left lower pelvise shows a lower pole cyst measuring 1.0 cm. No additional abnormality is seen within this transplant kidney. This kidney shows no evidence of hydronephrosis with normal-sized ureter. Presumed pancreatic transplant is noted within the right side of the pelvis. Small fat-containing bilateral inguinal hernias are noted. Bone window settings were reviewed which shows scattered degenerative change within the spine. No acute osseous finding is appreciated. Appendix not visualized with certainty. Impression: 1. Transplant kidney shows a small cyst with no hydronephrosis. 2. Transplant pancreas is seen. 3. Abnormal configuration of the bladder which is stable. Prior study showed bladder calculi which are no longer seen. 4. Possible small calcified gallstones within the gallbladder. 5. Other findings as noted above. Nothing acute is appreciated on noncontrast CT study of the abdomen and pelvis. Diagnostic code #2 This report was dictated in [place] Standard Time
[2019-05-29] MEDS: SODIUM BICARBONATE PO SCH ×2 (22:19→23:26)
[2019-05-29] MEDS ORDERED: Sodium Polystyrene Sulfonate 15 GM/60 ML Susp 60 ML Bot ONE (23:08)
[2019-05-29 23:21] LABS: CARBON DIOXIDE,CO2 12.8 mmol/L (21.0-32.0); POTASSIUM,K 5.1 mmol/L (3.5-5.1)
[2019-05-30] MEDS: Heparin Sodium 5,000 Units/ML Vial SUBCUT SCH ×2 (01:49→08:55)
[2019-05-30] MEDS: SODIUM BICARBONATE PO SCH ×2 (06:47→11:37)
[2019-05-30] MEDS ORDERED: NIFEdipine 30 MG Tab.ER PO SCH (09:00)
[2019-05-30] MEDS ORDERED: Tacrolimus 1 MG Cap PO SCH (09:00)
[2019-05-30] MEDS ORDERED: predniSONE 5 MG Tab PO SCH (09:00)
[2019-05-30] MEDS ORDERED: Metoprolol Succinate 50 MG Tab.ER PO SCH (09:00)
[2019-05-30 09:19] LABS: BLOOD UREA NITROGEN,BUN 42 mg/dL (7.0-18.0); CARBON DIOXIDE,CO2 11.3 mmol/L (21.0-32.0); CHLORIDE,CL 104 mmol/L (98-107); GLUCOSE RANDOM 136 mg/dL (74-106); POTASSIUM,K 5.3 mmol/L (3.5-5.1); SODIUM,NA 131 mmol/L (136-148)
[2019-05-30] MEDS: Mycophenolate Mofetil 250 MG Cap PO SCH (09:56)
[2019-05-30] MEDS ORDERED: Sodium Polystyrene Sulfonate 15 GM/60 ML Susp 60 ML Bot PO ONE (10:17)
[2019-05-30] MEDS: cefTRIAXone 1 GM in Premix Bag 1 BAG IV SCH (11:15)
--- NOTE | 2019-05-30 12:00 | PCM.DCSUM1 ---
Discharge Summary - Hospital Course Free Text/Narrative:: 63 y/o male with history of renal transplant 20 years ago who presented to the ER complaining of generalized weakness. He was found to be hyperkalemic K 6.1 and Hyponatremia 123. In addition acute kidney injury Cr 1.8. He was admitted for TYREE, hyponatremia and hyperkalemia. He was given calcium gluconate x 2 doses , Kayexalate and Insulin to normalize his potassium. He was started on some maintenance fluids which helped normalize his sodium up to Na 131. In addition, his kidney function improved down to Cr 1.2. He was found to have a UTI and had been getting treatment with Bactrim as outpatient. While in the hospital he received Ceftriaxone. At time of discharge he was doing well. Na 131, K 5.3, Cr 1.2. Attempted to contact Dr. Dallas, Transplant team at the [facility], however, no call back before patient was discharged. He was discharged on Nitrofurantoin and advised to follow-up with his PCP and transplant team at the [facility]. - Discharge Data Discharge Date: 05/31/19 Discharge Disposition: Home, Self-Care 01 Condition: Fair - Referral to Home Health Primary Care Physician: Memo Dickinson MD - Patient Instructions Diet: Regular Diet as Tolerated, Drink 8-10+ Glasses/Day Activity: As Tolerated Notify Provider of: Fever, Increased Pain, Swelling and Redness, Nausea and/or Vomiting Other/Special Instructions: Please follow-up with your PCP for repeat blood work and [facility] Renal Transplant Team. - Discharge Plan Prescriptions/Med Rec: Nitrofurantoin Macrocrystal [Nitrofurantoin] 100 mg PO BID 10 Days #20 capsule Home Medications: Home Meds Aspirin [[place] Aspirin EC] 81 mg PO DAILY 08/29/15 [History] Metoprolol Succinate 50 mg PO DAILY 08/29/15 [History] NIFEdipine [Nifedipine ER] 30 mg PO DAILY 08/29/15 [History] Tacrolimus 2 mg PO DAILY 08/29/15 [History] mycophenolate mofetiL [Mycophenolate Mofetil] 1,000 mg PO BID 08/29/15 [History] predniSONE [Prednisone] 5 mg PO DAILY 08/29/15 [History] Sulfamethoxazole/Trimethoprim [Bactrim 400-80 MG] 1 tab PO DAILY 02/13/16 [ History] Insulin Pump/Infus. Set/Meter [Accu-Chek Combo System] 1 dose SQ DAILY 03/03/18 [History] Sodium Bicarbonate 2 tab PO 03/03/18 [History] Tacrolimus 1 mg PO BEDTIME 05/29/19 [History] Nitrofurantoin Macrocrystal [Nitrofurantoin] 100 mg PO BID 10 Days #20 capsule 05/30/19 [Rx] Patient Handouts: Acute Kidney Injury, Adult, Hyponatremia, Hyperkalemia Referrals: [facility] [Outside] Memo Dickinson MD [Primary Care Provider] - 06/07/19 8:00 am - Discharge Summary/Plan Comment DC Time >30 min.: No - Patient Data Vitals - Most Recent: Last Vital Signs Temp 36.5 C 05/30/19 08:00 Pulse 115 H 05/30/19 08:54 Resp 20 05/30/19 08:00 BP 119/75 05/30/19 08:54 Pulse Ox 97 05/30/19 08:00 Weight - Most Recent: 76.204 kg I&O - Last 24 hours: Intake & Output 05/29/19 05/30/19 05/30/19 22:59 06:59 14:59 Intake Total 1132 Output Total 900 Balance 232 Lab Results - Last 24 hrs: Laboratory Results - last 24 hr 05/29/19 05/29/19 05/29/19 Range/Units 14:00 14:05 15:03 WBC 13.75 H (4.0-11.0) K/uL RBC 4.65 (4.50-5.90) M/uL Hgb 14.2 (13.0-17.0) g/dL Hct 43.4 (38.0-50.0) % MCV 93.3 (80.0-98.0) fL MCH 30.5 (27.0-32.0) pg MCHC 32.7 (31.0-37.0) g/dL RDW Std Deviation 48.9 (28.0-62.0) fl RDW Coeff of Kurt 15 (11.0-15.0) % Plt Count 426 H (150-400) K/uL MPV 9.50 (7.40-12.00) fL Neut % (Auto) 83.5 H (48.0-80.0) % Lymph % (Auto) 10.8 L (16.0-40.0) % [place] % (Auto) 5.5 (0.0-15.0) % Eos % (Auto) 0.1 (0.0-7.0) % Baso % (Auto) 0.1 (0.0-1.5) % Neut # (Auto) 11.5 H (1.4-5.7) K/uL Lymph # (Auto) 1.5 (0.6-2.4) K/uL Osage # (Auto) 0.8 (0.0-0.8) K/uL Eos # (Auto) 0.0 (0.0-0.7) K/uL Baso # (Auto) 0.0 (0.0-0.1) K/uL Nucleated RBC % 0.0 /100WBC Nucleated RBCs # 0 K/uL Sodium 123 L (136-148) mmol/L Potassium 5.9 H (3.5-5.1) mmol/L Chloride 96 L (98-107) mmol/L Carbon Dioxide 11.6 L (21.0-32.0) mmol/L BUN 53 H (7.0-18.0) mg/dL Creatinine 1.8 H (0.8-1.3) mg/dL Est Cr Clr Drug Dosing 33.81 mL/min Estimated GFR (MDRD) 38.3 ml/min Glucose 242 H (74-106) mg/dL POC Glucose (60-110) mg/dL Hemoglobin A1c (4.5-6.2) % Calcium 9.0 (8.5-10.1) mg/dL Magnesium (1.8-2.4) mg/dL Total Bilirubin 0.3 (0.2-1.0) mg/dL AST 19 (15-37) IU/L ALT 20 (14-63) IU/L Alkaline Phosphatase 73 (46-116) U/L Total Protein 7.5 (6.4-8.2) g/dL Albumin 3.7 (3.4-5.0) g/dL Globulin 3.8 (2.6-4.0) g/dL Albumin/Globulin Ratio 1.0 (0.9-1.6) Triglycerides (0-200) mg/dL Cholesterol (50-200) mg/dL LDL Cholesterol, Calc (60-180) mg/dL VLDL Cholesterol (5-55) mg/dL HDL Cholesterol (40-60) mg/dL Cholesterol/HDL Ratio (3.3-6.0) Lipase 728 H (73-393) U/L TSH 3rd Generation (0.36-3.74) uIU/mL Urine Color YELLOW Urine Appearance SLT CLOUDY Urine pH 7.5 (5.0-8.0) Ur Specific Damon 1.015 (1.001-1.035) Urine Protein NEGATIVE (NEGATIVE) mg/dL Urine Glucose (UA) NEGATIVE (NEGATIVE) mg/dL Urine Ketones NEGATIVE (NEGATIVE) mg/dL Urine Occult Blood LARGE H (NEGATIVE) Urine Nitrite NEGATIVE (NEGATIVE) Urine Bilirubin NEGATIVE (NEGATIVE) Urine Urobilinogen 0.2 (<2.0) EU/dL Ur Leukocyte Esterase LARGE H (NEGATIVE) Urine RBC 30-35 (0-2/HPF) Urine WBC 6-8 (0-5/HPF) Ur Epithelial Cells FEW (NONE-FEW) Urine Bacteria FEW (NEGATIVE) Urine Mucus MODERATE (NONE-MOD) Ur Random Creatinine mg/dL Ur Random Sodium (40.0-220.0) mmol/L Ur Random Potassium mmol/L 05/29/19 05/29/19 05/29/19 Range/Units 15:03 15:03 19:35 WBC (4.0-11.0) K/uL RBC (4.50-5.90) M/uL Hgb (13.0-17.0) g/dL Hct (38.0-50.0) % MCV (80.0-98.0) fL MCH (27.0-32.0) pg MCHC (31.0-37.0) g/dL RDW Std Deviation (28.0-62.0) fl RDW Coeff of Krut (11.0-15.0) % Plt Count (150-400) K/uL MPV (7.40-12.00) fL Neut % (Auto) (48.0-80.0) % Lymph % (Auto) (16.0-40.0) % [place] % (Auto) (0.0-15.0) % Eos % (Auto) (0.0-7.0) % Baso % (Auto) (0.0-1.5) % Neut # (Auto) (1.4-5.7) K/uL Lymph # (Auto) (0.6-2.4) K/uL Os[place] # (Auto) (0.0-0.8) K/uL Eos # (Auto) (0.0-0.7) K/uL Baso # (Auto) (0.0-0.1) K/uL Nucleated RBC % /100WBC Nucleated RBCs # K/uL Sodium 127 L (136-148) mmol/L Potassium 6.1 H (3.5-5.1) mmol/L Chloride 101 (98-107) mmol/L Carbon Dioxide 14.4 L (21.0-32.0) mmol/L BUN 52 H (7.0-18.0) mg/dL Creatinine 1.6 H (0.8-1.3) mg/dL Est Cr Clr Drug Dosing 45.72 mL/min Estimated GFR (MDRD) 43.9 ml/min Glucose 252 H (74-106) mg/dL POC Glucose (60-110) mg/dL Hemoglobin A1c 6.4 H (4.5-6.2) % Calcium 9.5 (8.5-10.1) mg/dL Magnesium 2.3 (1.8-2.4) mg/dL Total Bilirubin (0.2-1.0) mg/dL AST (15-37) IU/L ALT (14-63) IU/L Alkaline Phosphatase (46-116) U/L Total Protein (6.4-8.2) g/dL Albumin (3.4-5.0) g/dL Globulin (2.6-4.0) g/dL Albumin/Globulin Ratio (0.9-1.6) Triglycerides (0-200) mg/dL Cholesterol (50-200) mg/dL LDL Cholesterol, Calc (60-180) mg/dL VLDL Cholesterol (5-55) mg/dL HDL Cholesterol (40-60) mg/dL Cholesterol/HDL Ratio (3.3-6.0) Lipase (73-393) U/L TSH 3rd Generation (0.36-3.74) uIU/mL Urine Color Urine Appearance Urine pH (5.0-8.0) Ur Specific Damon (1.001-1.035) Urine Protein (NEGATIVE) mg/dL Urine Glucose (UA) (NEGATIVE) mg/dL Urine Ketones (NEGATIVE) mg/dL Urine Occult Blood (NEGATIVE) Urine Nitrite (NEGATIVE) Urine Bilirubin (NEGATIVE) Urine Urobilinogen (<2.0) EU/dL Ur Leukocyte Esterase (NEGATIVE) Urine RBC (0-2/HPF) Urine WBC (0-5/HPF) Ur Epithelial Cells (NONE-FEW) Urine Bacteria (NEGATIVE) Urine Mucus (NONE-MOD) Ur Random Creatinine mg/dL Ur Random Sodium (40.0-220.0) mmol/L Ur Random Potassium mmol/L 05/29/19 05/29/19 05/30/19 Range/Units 23:00 23:30 06:56 WBC (4.0-11.0) K/uL RBC (4.50-5.90) M/uL Hgb (13.0-17.0) g/dL Hct (38.0-50.0) % MCV (80.0-98.0) fL MCH (27.0-32.0) pg MCHC (31.0-37.0) g/dL RDW Std Deviation (28.0-62.0) fl RDW Coeff of Kurt (11.0-15.0) % Plt Count (150-400) K/uL MPV (7.40-12.00) fL Neut % (Auto) (48.0-80.0) % Lymph % (Auto) (16.0-40.0) % [place] % (Auto) (0.0-15.0) % Eos % (Auto) (0.0-7.0) % Baso % (Auto) (0.0-1.5) % Neut # (Auto) (1.4-5.7) K/uL Lymph # (Auto) (0.6-2.4) K/uL Os[place] # (Auto) (0.0-0.8) K/uL Eos # (Auto) (0.0-0.7) K/uL Baso # (Auto) (0.0-0.1) K/uL Nucleated RBC % /100WBC Nucleated RBCs # K/uL Sodium 130 L (136-148) mmol/L Potassium 5.1 (3.5-5.1) mmol/L Chloride 102 (98-107) mmol/L Carbon Dioxide 12.8 L (21.0-32.0) mmol/L BUN 51 H (7.0-18.0) mg/dL Creatinine 1.5 H (0.8-1.3) mg/dL Est Cr Clr Drug Dosing 48.77 mL/min Estimated GFR (MDRD) 47.3 ml/min Glucose 123 H (74-106) mg/dL POC Glucose (60-110) mg/dL Hemoglobin A1c (4.5-6.2) % Calcium 9.7 (8.5-10.1) mg/dL Magnesium (1.8-2.4) mg/dL Total Bilirubin (0.2-1.0) mg/dL AST (15-37) IU/L ALT (14-63) IU/L Alkaline Phosphatase (46-116) U/L Total Protein (6.4-8.2) g/dL Albumin (3.4-5.0) g/dL Globulin (2.6-4.0) g/dL Albumin/Globulin Ratio (0.9-1.6) Triglycerides 102 (0-200) mg/dL Cholesterol 163 (50-200) mg/dL LDL Cholesterol, Calc 94 (60-180) mg/dL VLDL Cholesterol 20 (5-55) mg/dL HDL Cholesterol 49 (40-60) mg/dL Cholesterol/HDL Ratio 3.3 (3.3-6.0) Lipase 842 H (73-393) U/L TSH 3rd Generation 5.16 H (0.36-3.74) uIU/mL Urine Color Urine Appearance Urine pH (5.0-8.0) Ur Specific Damon (1.001-1.035) Urine Protein (NEGATIVE) mg/dL Urine Glucose (UA) (NEGATIVE) mg/dL Urine Ketones (NEGATIVE) mg/dL Urine Occult Blood (NEGATIVE) Urine Nitrite (NEGATIVE) Urine Bilirubin (NEGATIVE) Urine Urobilinogen (<2.0) EU/dL Ur Leukocyte Esterase (NEGATIVE) Urine RBC (0-2/HPF) Urine WBC (0-5/HPF) Ur Epithelial Cells (NONE-FEW) Urine Bacteria (NEGATIVE) Urine Mucus (NONE-MOD) Ur Random Creatinine 58.5 mg/dL Ur Random Sodium 80.0 (40.0-220.0) mmol/L Ur Random Potassium 14.3 mmol/L 05/30/19 05/30/19 05/30/19 Range/Units 07:00 08:34 08:34 WBC 12.72 H (4.0-11.0) K/uL RBC 4.46 L (4.50-5.90) M/uL Hgb 13.5 (13.0-17.0) g/dL Hct 41.2 (38.0-50.0) % MCV 92.4 (80.0-98.0) fL MCH 30.3 (27.0-32.0) pg MCHC 32.8 (31.0-37.0) g/dL RDW Std Deviation 48.8 (28.0-62.0) fl RDW Coeff of Kurt 15 (11.0-15.0) % Plt Count 363 (150-400) K/uL MPV 9.10 (7.40-12.00) fL Neut % (Auto) 76.4 (48.0-80.0) % Lymph % (Auto) 15.3 L (16.0-40.0) % [place] % (Auto) 8.2 (0.0-15.0) % Eos % (Auto) 0.1 (0.0-7.0) % Baso % (Auto) 0.0 (0.0-1.5) % Neut # (Auto) 9.7 H (1.4-5.7) K/uL Lymph # (Auto) 1.9 (0.6-2.4) K/uL Os[place] # (Auto) 1.0 H (0.0-0.8) K/uL Eos # (Auto) 0.0 (0.0-0.7) K/uL Baso # (Auto) 0.0 (0.0-0.1) K/uL Nucleated RBC % 0.0 /100WBC Nucleated RBCs # 0 K/uL Sodium 131 L (136-148) mmol/L Potassium 5.3 H (3.5-5.1) mmol/L Chloride 104 (98-107) mmol/L Carbon Dioxide 11.3 L (21.0-32.0) mmol/L BUN 42 H (7.0-18.0) mg/dL Creatinine 1.2 (0.8-1.3) mg/dL Est Cr Clr Drug Dosing 60.96 mL/min Estimated GFR (MDRD) > 60.0 ml/min Glucose 136 H (74-106) mg/dL POC Glucose 111 H (60-110) mg/dL Hemoglobin A1c (4.5-6.2) % Calcium 9.4 (8.5-10.1) mg/dL Magnesium (1.8-2.4) mg/dL Total Bilirubin 0.4 (0.2-1.0) mg/dL AST 16 (15-37) IU/L ALT 18 (14-63) IU/L Alkaline Phosphatase 70 (46-116) U/L Total Protein 7.2 (6.4-8.2) g/dL Albumin 3.5 (3.4-5.0) g/dL Globulin 3.7 (2.6-4.0) g/dL Albumin/Globulin Ratio 0.9 (0.9-1.6) Triglycerides (0-200) mg/dL Cholesterol (50-200) mg/dL LDL Cholesterol, Calc (60-180) mg/dL VLDL Cholesterol (5-55) mg/dL HDL Cholesterol (40-60) mg/dL Cholesterol/HDL Ratio (3.3-6.0) Lipase (73-393) U/L TSH 3rd Generation (0.36-3.74) uIU/mL Urine Color Urine Appearance Urine pH (5.0-8.0) Ur Specific Damon (1.001-1.035) Urine Protein (NEGATIVE) mg/dL Urine Glucose (UA) (NEGATIVE) mg/dL Urine Ketones (NEGATIVE) mg/dL Urine Occult Blood (NEGATIVE) Urine Nitrite (NEGATIVE) Urine Bilirubin (NEGATIVE) Urine Urobilinogen (<2.0) EU/dL Ur Leukocyte Esterase (NEGATIVE) Urine RBC (0-2/HPF) Urine WBC (0-5/HPF) Ur Epithelial Cells (NONE-FEW) Urine Bacteria (NEGATIVE) Urine Mucus (NONE-MOD) Ur Random Creatinine mg/dL Ur Random Sodium (40.0-220.0) mmol/L Ur Random Potassium mmol/L 05/30/19 Range/Units 11:46 WBC (4.0-11.0) K/uL RBC (4.50-5.90) M/uL Hgb (13.0-17.0) g/dL Hct (38.0-50.0) % MCV (80.0-98.0) fL MCH (27.0-32.0) pg MCHC (31.0-37.0) g/dL RDW Std Deviation (28.0-62.0) fl RDW Coeff of Kurt (11.0-15.0) % Plt Count (150-400) K/uL MPV (7.40-12.00) fL Neut % (Auto) (48.0-80.0) % Lymph % (Auto) (16.0-40.0) % [place] % (Auto) (0.0-15.0) % Eos % (Auto) (0.0-7.0) % Baso % (Auto) (0.0-1.5) % Neut # (Auto) (1.4-5.7) K/uL Lymph # (Auto) (0.6-2.4) K/uL [place] # (Auto) (0.0-0.8) K/uL Eos # (Auto) (0.0-0.7) K/uL Baso # (Auto) (0.0-0.1) K/uL Nucleated RBC % /100WBC Nucleated RBCs # K/uL Sodium (136-148) mmol/L Potassium (3.5-5.1) mmol/L Chloride (98-107) mmol/L Carbon Dioxide (21.0-32.0) mmol/L BUN (7.0-18.0) mg/dL Creatinine (0.8-1.3) mg/dL Est Cr Clr Drug Dosing mL/min Estimated GFR (MDRD) ml/min Glucose (74-106) mg/dL POC Glucose 231 H (60-110) mg/dL Hemoglobin A1c (4.5-6.2) % Calcium (8.5-10.1) mg/dL Magnesium (1.8-2.4) mg/dL Total Bilirubin (0.2-1.0) mg/dL AST (15-37) IU/L ALT (14-63) IU/L Alkaline Phosphatase (46-116) U/L Total Protein (6.4-8.2) g/dL Albumin (3.4-5.0) g/dL Globulin (2.6-4.0) g/dL Albumin/Globulin Ratio (0.9-1.6) Triglycerides (0-200) mg/dL Cholesterol (50-200) mg/dL LDL Cholesterol, Calc (60-180) mg/dL VLDL Cholesterol (5-55) mg/dL HDL Cholesterol (40-60) mg/dL Cholesterol/HDL Ratio (3.3-6.0) Lipase (73-393) U/L TSH 3rd Generation (0.36-3.74) uIU/mL Urine Color Urine Appearance Urine pH (5.0-8.0) Ur Specific Damon (1.001-1.035) Urine Protein (NEGATIVE) mg/dL Urine Glucose (UA) (NEGATIVE) mg/dL Urine Ketones (NEGATIVE) mg/dL Urine Occult Blood (NEGATIVE) Urine Nitrite (NEGATIVE) Urine Bilirubin (NEGATIVE) Urine Urobilinogen (<2.0) EU/dL Ur Leukocyte Esterase (NEGATIVE) Urine RBC (0-2/HPF) Urine WBC (0-5/HPF) Ur Epithelial Cells (NONE-FEW) Urine Bacteria (NEGATIVE) Urine Mucus (NONE-MOD) Ur Random Creatinine mg/dL Ur Random Sodium (40.0-220.0) mmol/L Ur Random Potassium mmol/L LORY Results - Last 24 hrs: Microbiology 05/29/19 19:35 Anaerobic Blood Culture - Final Blood - Venous - Lab Draw 05/29/19 19:10 Anaerobic Blood Culture - Final Blood - Venous Med Orders - Current: Current Medications Acetaminophen (Tylenol) 650 mg PO Q4H PRN PRN Reason: Pain (Mild 1-3)/fever Docusate Sodium (Colace) 100 mg PO BID PRN PRN Reason: Constipation Heparin Sodium (Porcine) (Heparin Sodium) 5,000 units SUBCUT Q8H [facility] Last Admin: 05/30/19 08:55 Dose: 5,000 units Sodium Chloride (Normal Saline) 1,000 mls @ 75 mls/hr IV ASDIRECTED [facility] Last Admin: 05/29/19 20:23 Dose: 75 mls/hr Ceftriaxone Sodium/Dextrose 1 (gm/ Premix) 50 mls @ 100 mls/hr IV DAILY [facility] Last Admin: 05/30/19 11:15 Dose: Not Given Metoprolol Succinate (Toprol Xl) 50 mg PO DAILY [facility] Last Admin: 05/30/19 08:54 Dose: 50 mg Mycophenolate Mofetil (Cellcept) 1,000 mg PO BID [facility] Last Admin: 05/30/19 09:56 Dose: 1,000 mg Nifedipine (Procardia Xl) 30 mg PO DAILY [facility] Last Admin: 05/30/19 08:53 Dose: 30 mg Non-Formulary Medication (Insulin Pump/Infus. Set/Meter [Accu-Chek Combo System] ) 1 dose SQ DAILY [facility] Last Admin: 05/30/19 08:56 Dose: Not Given Ondansetron HCl (Zofran Odt) 4 mg PO Q4H PRN PRN Reason: nausea, able to take PO Ondansetron HCl (Zofran) 4 mg IVPUSH Q4H PRN PRN Reason: Nausea Sodium Bicarbonate 2 (Tab) 2 each PO 5XDAY [facility] Polyethylene Glycol (Miralax) 17 gm PO DAILY PRN PRN Reason: Constipation Prednisone (Prednisone) 5 mg PO DAILY [facility] Last Admin: 05/30/19 08:53 Dose: 5 mg Tacrolimus (Prograf) 1 mg PO BEDTIME [facility] Last Admin: 05/29/19 20:28 Dose: 1 mg Tacrolimus (Prograf) 2 mg PO DAILY [facility] Last Admin: 05/30/19 08:54 Dose: 2 mg Temazepam (Restoril) 15 mg PO BEDTIME PRN PRN Reason: Sleep Discontinued Medications Albuterol (Proventil Neb Soln) 2.5 mg NEB Q2H [facility] Stop: 05/29/19 21:31 Last Admin: 05/29/19 21:09 Dose: Not Given Albuterol (Proventil Neb Soln) 2.5 mg NEB Q2H PRN PRN Reason: Dyspnea Stop: 05/29/19 21:31 Calcium Gluconate (Calcium Gluconate) 1 gm IV ONETIME ONE Stop: 05/29/19 16:45 Last Admin: 05/29/19 16:50 Dose: 1 gm Dextrose/Water (Dextrose 50% In Water) 50 ml IVPUSH ONETIME ONE Stop: 05/29/19 21:10 Last Admin: 05/29/19 22:05 Dose: 50 ml Sodium Chloride (Normal Saline) 1,000 mls @ 999 mls/hr IV .BOLUS ONE Stop: 05/29/19 17:33 Last Admin: 05/29/19 16:48 Dose: 999 mls/hr Insulin Human Regular (Novolin R) 10 unit IVPUSH ONETIME ONE; Protocol Stop: 05/29/19 21:09 Last Admin: 05/29/19 22:16 Dose: 10 units Non-Formulary Medication (Sodium Bicarbonate) 2 tab PO 5XDAY [facility]IVIA Last Admin: 05/30/19 11:37 Dose: 2 tab Sodium Polystyrene Sulfonate (Kayexalate) 15 gm PO ONETIME ONE Stop: 05/29/19 19:52 Last Admin: 05/29/19 23:24 Dose: Not Given Sodium Polystyrene Sulfonate (Kayexalate) Confirm Administered Dose 15 gm .ROUTE .STK-MED ONE Stop: 05/29/19 23:09 Last Admin: 05/29/19 23:22 Dose: 15 gm Sodium Polystyrene Sulfonate (Kayexalate) 15 gm PO ONETIME ONE Stop: 05/30/19 10:18 Last Admin: 05/30/19 11:38 Dose: 15 gm
[2019-05-30 14:43] VITALS: BP 119/71; PULSE 93
[2019-05-30] MEDS ORDERED: SODIUM BICARBONATE PO SCH (15:00)
== END 2019-05-30 14:10 | disposition home or self-care (01) ==
LOC: MW.ED 13:40 → MW.MS 16:43
PROVIDERS: ADMIT Student in an Organized Health Care Education/Training Program; ATTEND Student in an Organized Health Care Education/Training Program
DX: E87.1 Hypo-osmolality and hyponatremia (principal); E87.5 Hyperkalemia; N17.9 Acute kidney failure, unspecified; N39.0 Urinary tract infection, site not specified; D72.829 Elevated white blood cell count, unspecified; E11.9 Type 2 diabetes mellitus without complications; Z94.0 Kidney transplant status; Z79.899 Other long term (current) drug therapy; Z79.82 Long term (current) use of aspirin; Z99.2 Dependence on renal dialysis; Z79.4 Long term (current) use of insulin; Z94.83 Pancreas transplant status
CPT/HCPCS: 36415; 74176; 80048; 80053; 80061; 81001; 82570; 82962; 83036; 83690; 83735; 84133; 84300; 84443; 85025; 87040; 87086; 93005; 99285; A9270; J0610; J0696; J1644; J1815; J7030; J7512

== ENCOUNTER 2019-06-11 14:33 | Emergency (ER) | payer BC ==
[~2019-06-11 14:33] MED LIST: Calcium Chloride 10% 1 GM/10 ML Syringe IVPUSH ONE; EPINEPHrine 1 MG/1 ML Amp IVPUSH ONE; Sodium Chloride 0.9% 1,000 ML IV ONE
--- NOTE | 2019-06-11 15:08 | PCM.SN ---
- Free Text/Narrative Note: 1430: Called to ER for Code Blue. When Patient arrived, EMS was doing CPR and Ambu mask ventilation. Dr. Shea in the ED placed an ETT using Glidescope Pro. Placement confirmed with bilateral breath sounds and positive ET CO2. Assisted with manual ventilation via ambu and 10L O2 until respiratory therapist got ETT secured. RT took over ventilations from this point. Code continued until options were exhausted. See Code Blue documentation for more details.
--- NOTE | 2019-06-11 15:16 | EDM.PDOC ---
ED HPI GENERAL MEDICAL PROBLEM - General Chief Complaint: CPR in Progress Stated Complaint: EMS ARRIVAL - CODE BLUE Time Seen by Provider: 06/11/19 15:16 - History of Present Illness INITIAL COMMENTS - FREE TEXT/NARRATIVE: HPI 70-year-old male (est) presents by EMS with CPR progress after reportedly falling 30 minutes prior to arrival in being found with possible pulses with near immediate loss of pulses, CPR initiate by EMS, patient and asystole throughout, epinephrine 3 given prior to arrival. M/S/F/SocHx notable for: unknown. ROS: unknown. Exam vitals: patient warmth to touch, no palpable pulses. No respirations. Gen: laceration on right eyebrow, laceration of ocean grossly appreciated on the dorsum of right hand, right a.k.a. noted, no further abnormalities grossly appreciated. Appears ~70 years old. Insulin pump noted by patient side. HEENT: left pupil 4 mm and fixed, right pupil 3 mm and fixed, trauma as above. No further abnormalities appreciated. Resp: breath sounds bilaterally with BVM respirations. Card: no cardiac sounds on auscultation, no palpable pulses. GI: nondistended. Superficial scattered ecchymosis on the left anterior abdominal wall. : deferred. MSK: no further visible abnormalities than noted above. Skin: pale in color. Neuro: nonresponsive. Psych: unable to assess. MDM Previous chart, nursing note, labs, imaging, and vitals reviewed. A: 70-year-old male (est) presents by EMS with CPR progress after reportedly falling 30 minutes prior to arrival in being found with possible pulses with near immediate loss of pulses, CPR initiate by EMS, patient and asystole throughout, epinephrine 3 given prior to arrival. Evaluation: report received by EMS. CPR continued, patient intubated with Glidescope as below. ET tube placement confirmed by auscultation, tube fogging, Inc. capnography color change. Please refer to the code sheet for precise details, however the patient received 2 g calcium, further epinephrine, and the patient remained without palpable pulses. Glucose within acceptable limits. Bedside ultrasound performed at rhythm checks with the patient in cardiac standstill. Hs & Ts jointly reviewed with the code team, no further reversible causes identified. Resuscitation terminated. Impression: cardiopulmonary arrest. Endotracheal Intubation Consent: Verbal consent due to urgency of clinical condition.Implied consent. Procedure: The patient was intubated with a 4 Glidescope blade under video laryngoscopy with a grade 1 Cormack-Lehane view. An 8-0 ET tube was placed at 23 cm at the teeth. - Related Data Allergies Allergy/AdvReac Type Severity Reaction Status Date / Time No Known Allergies Allergy Verified 05/29/19 13:52 Home Meds: Home Meds Aspirin [Armorel Aspirin EC] 81 mg PO DAILY 08/29/15 [History] Metoprolol Succinate 50 mg PO DAILY 08/29/15 [History] NIFEdipine [Nifedipine ER] 30 mg PO DAILY 08/29/15 [History] Tacrolimus 2 mg PO DAILY 08/29/15 [History] mycophenolate mofetiL [Mycophenolate Mofetil] 1,000 mg PO BID 08/29/15 [History] predniSONE [Prednisone] 5 mg PO DAILY 08/29/15 [History] Sulfamethoxazole/Trimethoprim [Bactrim 400-80 MG] 1 tab PO DAILY 02/13/16 [ History] Insulin Pump/Infus. Set/Meter [Accu-Chek Combo System] 1 dose SQ DAILY 03/03/18 [History] Sodium Bicarbonate 2 tab PO DAY 03/03/18 [History] Tacrolimus 1 mg PO BEDTIME 05/29/19 [History] Nitrofurantoin Macrocrystal [Nitrofurantoin] 100 mg PO BID 10 Days #20 capsule 05/30/19 [Rx] Past Medical History HEENT History: Reports: Other (See Below) Other HEENT History: wears glasses, has upper denture Cardiovascular History: Reports: PVD Respiratory History: Reports: None Gastrointestinal History: Reports: None, Other (See Below) Other Gastrointestinal History: occasional heartburn Genitourinary History: Reports: Acute Renal Failure, Dialysis, Renal Calculus Other Genitourinary History: hx renal failure, dialysis in the past, hx of pancreas and kidney transplant Musculoskeletal History: Reports: None Neurological History: Reports: None Psychiatric History: Reports: None Endocrine/Metabolic History: Reports: Diabetes, Type I, Other (See Below) Hematologic History: Reports: None Immunologic History: Reports: Immunosuppression, Solid Organ Transplant Other Immunologic History: takes anti-rejection drugs Oncologic (Cancer) History: Reports: None Dermatologic History: Reports: None - Infectious Disease History Infectious Disease History: Reports: Chicken Pox - Past Surgical History Head Surgeries/Procedures: Reports: None HEENT Surgical History: Reports: Cataract Surgery, Laser Surgery Male Surgical History: Reports: Kidney Stone Extraction Social & Family History - Family History Family Medical History: Noncontributory - Caffeine Use Caffeine Use: Reports: Tea Caffeine Use Comment: 1 cup/ day ED ROS GENERAL - Review of Systems Review Of Systems: See Below ED EXAM, GENERAL - Physical Exam Exam: See Below Departure - Departure Time of Disposition: 15:14 Disposition: 20 Preliminary Cause of *Q: Cardiac Arrest Clinical Impression: Cardiac arrest - Discharge Information
[2019-06-11 15:42] VITALS: BP 84/45; PULSE 0
== END 2019-06-11 19:50 | disposition expired ==
LOC: MW.ED 14:33
DX: I46.9 Cardiac arrest, cause unspecified (principal); E10.52 Type 1 diabetes mellitus with diabetic peripheral angiopathy with gangrene; Z79.82 Long term (current) use of aspirin; Z79.899 Other long term (current) drug therapy
CPT/HCPCS: 31500; 92950; 96374; 96375; 99285; J0171; J7030